=== PATIENT | male | born 1950 | race Caucasian/White ===

== ENCOUNTER → 2021-03-08 10:26 | Outpatient (CLI) | payer BC, MEDICARE, SELFPAY ==
--- NOTE | ~2021-03-08 | US_ITS ---
US abdomen complete DATE: 03/08/2021 10:52 INDICATION: Generalized abdominal pain TECHNIQUE: Real-time imaging of the abdomen, Doppler analysis COMPARISON: None FINDINGS: No hepatic or pancreatic space-occupying mass lesion is evident. Normal hepatopedal portal venous flow direction. No gallstones or gallbladder wall thickening. Common bile duct measures 3.7 mm , normal. Negative sonographic Jalloh's sign no renal mass lesion or hydronephrosis. Splenic size is within normal range. No renal mass lesion or hydronephrosis. IMPRESSION: No significant abnormality Reviewed, dictated and finalized at [facility] Reviewed, dictated and finalized at [facility]. IMPRESSION: No significant abnormality
== END ==
PROVIDERS: PCP Internal Medicine; Visit Provider Nurse Practitioner
DX: R10.9 Unspecified abdominal pain (principal)
CPT/HCPCS: 76700

== ENCOUNTER 2025-02-11 18:49 | Inpatient (IN) | payer MEDICARE, SELFPAY ==
[2025-02-11] VITALS (9 sets, daily range): BP systolic 93–156; BP diastolic 52–96; PULSE 75–88; RESP 16–20; TEMP 36.7–36.9; O2SAT 99–100; BMI 27.7
--- NOTE | 2025-02-11 19:10 | ED.GENADULT ---
HPI - General Adult General Chief complaint: GI Bleed Stated complaint: blood in stool Time Seen by Provider: 02/11/25 18:52 History of Present Illness HPI narrative: 74-year-old male present to the emergency department for evaluation for black tarry stools that started this morning. Patient has no prior history of GI bleed, patient is not on any blood thinners. Patient started taking increased doses of Excedrin and ibuprofen over the last 2 weeks for sciatica. Patient states that the stool started this morning and he has had multiple dark stools. Patient denies any associated abdominal pain. Patient did have some associated exertional fatigue when walking up stairs today. Related Data Home Medications ?Medication ?Instructions ?Recorded ?Confirmed ?Last Taken ?Type metformin 500 mg tablet 500 mg PO DAILY 02/11/25 02/11/25 02/10/25 History Allergies Allergy/AdvReac Type Severity Reaction Status Date / Time No Known Allergies Allergy Verified 07/06/19 07:47 Review of Systems Review of Systems: All systems reviewed & are unremarkable except as noted in HPI and below PMFSH Past Medical History Medical History (Updated 02/11/25 @ 22:25 by Ana Valdez PA-C) Chickenpox Measles Elevated blood pressure reading in office with diagnosis of hypertension Erectile dysfunction Abnormal fasting glucose Anemia Surgical History Surgical History (Updated 02/12/25 @ 01:05 by Ana Valdez PA-C) No history of previous surgery Family History Family History Father Acute myocardial infarction, Onset Age: 44 Mother Pneumonia Social History Social History (Updated 02/12/25 @ 01:06 by Ana Valdez PA-C) Social History: Surrogate medical decision maker: Ly Bailey spouse. Code status: Full code. Smoking status: Never smoker Alcohol intake: current Drinks per week: 1 Substance use: never Substance use type: does not use Do You Feel Safe in your Home?: Yes Lack of Transportation: No Lack of Food: Never True Current Housing: I Have Housing Concerned About Future Housing: No Difficulty Paying Gas/Electric Bills: No Difficulty Paying for Meds: No Currently Unemployed: No Education: Bachelor's Degree Difficulty w/ Childcare or Family Care: No Spiritual care concerns: No Exam Narrative: APPEARANCE: Well appearing, no pain, no distress, well-nourished. HEAD: normocephalic, atraumatic. EYES: PERRLA/EOMI, conjunctivae clear. NOSE: Normal no drainage EARS:TMS clear with good light reflex. THROAT: Pharynx clear, no exudate. NECK: Supple. No adenopathy, no masses. RESPIRATORY: Airway patent, respirations nonlabored. Clear to auscultation bilaterally, no rales, rhonchi, wheezing. CARDIOVASCULAR: Regular rate and rhythm without murmurs rubs or gallops. ABDOMINAL: Soft, nontender, nondistended, normal bowel sounds MUSCULOSKELETAL: Moves all extremities. Strength/ROM intact, No edema, No calf tenderness. NEURO: Alert. Cranial nerves II through XII intact. Good gait. Good coordination SKIN: Warm, dry. Normal Color Course Vital Signs Vital signs: Vital Signs Temperature 98.5 F 02/11/25 19:33 Pulse Rate 88 02/11/25 19:33 Respiratory Rate 16 02/11/25 19:33 Pulse Oximetry 100 02/11/25 19:33 Oxygen Delivery Room Air 02/11/25 19:33 Temperature 98.0 F 02/11/25 22:00 Pulse Rate 81 02/12/25 04:00 Respiratory Rate 20 02/11/25 22:00 Blood Pressure 93/59 L 02/11/25 23:21 Pulse Oximetry 99 02/11/25 22:00 Oxygen Delivery Room Air 02/11/25 19:33 Medical Decision Making [facility] Narrative Medical decision making narrative: 74-year-old male present to the emergency department for evaluation for black tarry stool that started early this morning. Patient was Hemoccult positive on exam. Patient is currently afebrile with a leukocytosis of 10.5 and hemoglobin of 11.2. This hemoglobin is decreased from his previous that have been collected in 2020. INR is 1.3. Patient's BUN is 36 with a creatinine of 0.83. Calcium 7.9. Patient's albumin is 2.9. Case was discussed with GI they are consulted and they are anticipating endoscopy tomorrow. Case was discussed with hospitalist patient was accepted for admission. Patient family were updated on results of the workup plan for admission. Differential Diagnosis Differential Diagnosis: Upper GI bleed, diarrhea, melena, hematochezia Vital Signs Vital Signs: Vital Signs Temperature 98.5 F 02/11/25 19:33 Pulse Rate 88 02/11/25 19:33 Respiratory Rate 16 02/11/25 19:33 Pulse Oximetry 100 02/11/25 19:33 Oxygen Delivery Room Air 02/11/25 19:33 Temperature 98.0 F 02/11/25 22:00 Pulse Rate 81 02/12/25 04:00 Respiratory Rate 20 02/11/25 22:00 Blood Pressure 93/59 L 02/11/25 23:21 Pulse Oximetry 99 02/11/25 22:00 Oxygen Delivery Room Air 02/11/25 19:33 Lab Data Lab results reviewed: Yes I reviewed the patient's lab results. 02/11/25 23:15 02/11/25 19:30 Labs: Lab Results 02/11/25 Range/Units 19:30 WBC 10.8 H (4.5-10.0) K/mm3 RBC 3.63 L (4.6-6.20) M/mm3 Hgb 11.2 L (14.0-18.0) g/dL Hct 34.4 L (42.0-52.0) % MCV 94.8 (80-100) fl MCH 30.9 (26-34) pg MCHC 32.6 (32-36) g/dl RDW 13.5 (11.5-14.5) % Plt Count 208 (150-375) k/mm3 MPV 9.0 (7.4-10.4) fl Immature Gran % (Auto) 0.5 (0-0.5) % Neut % (Auto) 81.3 H (45.5-73.1) % Lymph % (Auto) 11.8 L (18.3-44.2) % [place] % (Auto) 4.3 (2.6-8.5) % Eos % (Auto) 1.5 (0-4.4) % Baso % (Auto) 0.6 (0.2-1.2) % Lymph # (Auto) 1.27 (0.9-3.2) K/mm3 [place] # (Auto) 0.5 (0.1-0.6) K/mm3 Eos # (Auto) 0.2 (0-0.3) K/mm3 Baso # (Auto) 0.1 (0.0-0.1) K/mm3 Abs Immat Gran (auto) 0.05 H (0.00-0.031) K/mm3 Absolute Neuts (auto) 8.8 H (1.3-6.7) K/mm3 Absolute Nucleated RBC 0.000 (0.0-0.012) K/mm3 Nucleated RBC % 0.0 (0.0-0.2) % PT 16.1 H (11.1-14.7) Seconds INR 1.3 APTT 20.5 L (22.3-36.8) Seconds Sodium 138 (137-145) mmol/L Potassium 4.2 (3.4-5.0) mmol/L Chloride 112 H (98-107) mmol/L Carbon Dioxide 17 L (22-30) mmol/L Anion Gap 9 (4-12) mmol/L BUN 36 H (9-20) mg/dL Creatinine 0.83 (0.7-1.3) mg/dL Estim Creat Clear Calc 77 ml/min Estimated GFR > 60 (59 - ) Glucose 180 H (65-110) mg/dL Lactic Acid 1.8 (0.7-2.0) mmol/L Calcium 7.9 L (8.4-10.2) mg/dL Total Bilirubin 0.3 (0.2-1.3) mg/dL AST 21 (17-59) U/L ALT 18 (6-50) U/L Alkaline Phosphatase 27 L (38-126) U/L Total Protein 5.4 L (6.3-8.2) g/dL Albumin 2.9 L (3.5-5.1) g/dL Blood Type A Positive Antibody Screen Negative Discharge Plan Discharge Clinical Impression: Melena, Acute upper gastrointestinal bleeding Patient Disposition: Still a Patient Condition: Serious
[2025-02-11 19:38] LABS: Basophils Absolute Auto 0.1 K/mm3 (0.0-0.1); Basophils Percent Auto 0.6 % (0.2-1.2); Eosinophils Absolute Auto 0.2 K/mm3 (0-0.3); Eosinophils Percent Auto 1.5 % (0-4.4); Hematocrit 34.4 % (42.0-52.0); Hemoglobin 11.2 g/dL (14.0-18.0); Immature Granulocyte Absolute 0.05 K/mm3 (0.00-0.031); Immature Granulocyte Percent A 0.5 % (0-0.5); Lymphocytes Absolute Auto 1.27 K/mm3 (0.9-3.2); Lymphocytes Percent Auto 11.8 % (18.3-44.2); Mean Corpuscular HGB Conc 32.6 g/dl (32-36); Mean Corpuscular Hemoglobin 30.9 pg (26-34); Mean Corpuscular Volume 94.8 fl (80-100); Monocytes Absolute Auto 0.5 K/mm3 (0.1-0.6); Monocytes Percent Auto 4.3 % (2.6-8.5); Neutrophils Absolute Auto 8.8 K/mm3 (1.3-6.7); Neutrophils Percent Auto 81.3 % (45.5-73.1); Platelet Count Result 208 k/mm3 (150-375); Red Blood Count 3.63 M/mm3 (4.6-6.20); Red Cell Distribution Width 13.5 % (11.5-14.5); White Blood Count 10.8 K/mm3 (4.5-10.0)
[2025-02-11 19:50] LABS: Lactic Acid Reflex 1.8 mmol/L (0.7-2.0)
[2025-02-11 19:51] LABS: Alanine Aminotransferase 18 U/L (6-50); Albumin Level 2.9 g/dL (3.5-5.1); Alkaline Phosphatase 27 U/L (38-126); Anion Gap 9 mmol/L (4-12); Aspartate Amino Transferase 21 U/L (17-59); Bilirubin,Total 0.3 mg/dL (0.2-1.3); Blood Urea Nitrogen 36 mg/dL (9-20); Calcium 7.9 mg/dL (8.4-10.2); Carbon Dioxide 17 mmol/L (22-30); Chloride 112 mmol/L (98-107); Estimated CRCL calculation 77 ml/min; Estimated Glomerular Filt Rate > 60; Glucose 180 mg/dL (65-110); INR 1.3; Partial Thromboplastin Time 20.5 Seconds (22.3-36.8); Potassium 4.2 mmol/L (3.4-5.0); Prothrombin Time 16.1 Seconds (11.1-14.7); Sodium 138 mmol/L (137-145); Total Protein 5.4 g/dL (6.3-8.2)
[2025-02-11] MEDS: FAMOTIDINE 20 MG/2 ML VIAL IV PUSH (20:32)
[2025-02-11] MEDS: PANTOPRAZOLE SODIUM IV 40 MG VIAL IV PUSH (20:32)
[2025-02-11] MEDS: LACTATED RINGERS 1,000 ML 999 ML IV CONT (20:32)
--- NOTE | 2025-02-11 21:15 | P.HP_ITS ---
H&P: HPI History of Present Illness Date/Time: 02/11/25 22:30 Chief Complaint: Blood in stools. Narrative: This is a pleasant 74-year-old male without any significant reported medical history who presented to the emergency department via EMS from home for evaluation of blood in stools. He has been having issues with left-sided sciatica the last several weeks for which he has been taking ibuprofen and Excedrin daily. Last evening before bed his stomach felt a bit on easy but he was able to sleep throughout the night. Not long after waking up this morning he began to feel poorly with symptoms to include cold sweats and bloating. Not long after he had 2 dark, tarry stools which were formed. Sometime later he developed loose stools which were still dark and tarry but admixed with small amounts of bright red blood. He denies syncope, near syncope, chest pain, shortness of breath, abdominal pain, nausea, and vomiting. He typically takes Excedrin before bedtime but the ibuprofen is new given his sciatica. No significant alcohol use. No history of GERD, gastritis, or peptic ulcers. In the ED: His vital signs were stable on arrival. Labs were significant for WBC count of 10.8, hemoglobin 11.2, PT 16.1, INR 1.3, PTT 20.5, chloride 112, carbon dioxide 17, anion gap 9, BUN 36, glucose 180, total protein 5.4, albumin 2.9. He received famotidine 20 mg and pantoprazole 40 mg as well as a 1 L lactated Ri nger's bolus. He is being admitted in this setting for close monitoring and GI consultation. Review of Systems Review of Systems: 12 systems were reviewed and are negativ e except for as per HPI. [facility] Past Medical History Medical History (Updated 02/11/25 @ 22:25 by Ana Valdez PA-C) Chickenpox Measles Elevated blood pressure reading in office with diagnosis of hypertension Erectile dysfunction Abnormal fasting glucose Anemia Surgical History Surgical History (Updated 02/12/25 @ 01:05 by Ana Valdez PA-C) No history of previous surgery Family History Family History Father Acute myocardial infarction, Onset Age: 44 Mother Pneumonia Social History Social History (Updated 02/12/25 @ 01:06 by FRANCESCA Abraham Social History: Surrogate medical decision maker: Ly Bailey spouse. Code status: Full code. Smoking status: Never smoker Alcohol intake: current Drinks per week: 1 Substance use: never Substance use type: does not use Do You Feel Safe in your Home?: Yes Lack of Transportation: No Lack of Food: Never True Current Housing: I Have Housing Concerned About Future Housing: No Difficulty Paying Gas/Electric Bills: No Difficulty Paying for Meds: No Currently Unemployed: No Education: Bachelor's Degree Difficulty w/ Childcare or Family Care: No Spiritual care concerns: No Meds Home Medications and Allergies Home Medications ?Medication ?Instructions ?Recorded ?Confirmed ?Type sildenafil (pulm.hypertension) 20 20 mg PO .COMPLEX PRN sexual 06/16/20 02/11/25 Rx mg tablet activity #30 tabs metformin 500 mg tablet 500 mg PO DAILY 02/11/25 02/11/25 History Allergies Allergy/AdvReac Type Severity Reaction Status Date / Time No Known Allergies Allergy Verified 07/06/19 07:47 Vital Signs Vital Signs - 24 hr 02/11/25 19:33 Temperature 98.5 F Pulse Rate 88 Respiratory Rate 16 Pulse Oximetry 100 Oxygen Delivery Room Air Exam Narrative: General: Non-toxic appearing male in no distress. Weight: 100.7 kg. BMI: 27.7. HEENT: PERRL, EOMI. Sclera anicteric. Oral mucosa moist. Neck: Supple. Respiratory: Lungs are clear to auscultation bilaterally. Cardiovascular: Regular rate and rhythm with S1-S2. Gastrointestinal: Abdomen is soft, nontender, and nondistended with positive bowel sounds. Rectal: Stool heme positive per ED physician. Skin: Warm and dry. No rash or lesions on limited exam. Extremities: No cyanosis, clubbing, or edema. Radial and pedal pulses intact. Neurological: Alert. Cranial nerves 2-12 are grossly intact. No gross focal deficits to casual conversation. Psychiatric: Pleasant and cooperative with normal mood and affect. Judgment and insight intact. H&P: Results Labs Labs: Short CBC 02/11/25 Range/Units 19:30 WBC 10.8 H (4.5-10.0) K/mm3 Hgb 11.2 L (14.0-18.0) g/dL Hct 34.4 L (42.0-52.0) % Plt Count 208 (150-375) k/mm3 BMP 02/11/25 19:30 Sodium 138 Potassium 4.2 Chloride 112 H Carbon Dioxide 17 L BUN 36 H Creatinine 0.83 Glucose 180 H Calcium 7.9 L Liver Function 02/11/25 Range/Units 19:30 Total Bilirubin 0.3 (0.2-1.3) mg/dL AST 21 (17-59) U/L ALT 18 (6-50) U/L Alkaline Phosphatase 27 L (38-126) U/L Albumin 2.9 L (3.5-5.1) g/dL Assessment and Plan Assessment and plan (1) GI bleed: Code(s): K92.2 - Gastrointestinal hemorrhage, unspecified Status: Acute (2) Hyperglycemia: Code(s): R73.9 - Hyperglycemia, unspecified Status: Acute Plan The patient presented to the emergency for evaluation of dark stools since this morning as per HPI. Labs, imaging, EKG, and all reports were personally reviewed. Stool was Hemoccult positive per ED physician. Concerns are for upper GI bleed given reports of melena. He has been taking ibuprofen and Excedrin daily and may have gastritis or ulcer. He will be NPO after midnight for upper endoscopy tomorrow. Continue pantoprazole 40 mg IV b.i.d.. Blood pressures were stable on arrival but have been a bit softer this evening. Initial hemoglobin was 11.2 and we will continue to trend Q 6 hours and transfuse if indicated. The patient is on metformin and I suspect he may have prediabetes although he denies this. Random glucose today was 180; glucose and hemoglobin A1c. We did discuss avoiding NSAIDs and Excedrin and trying acetaminophen for pain. His home medications will be reviewed and resumed as appropriate. Findings and treatment plan were discussed with the patient and his . Questions were solicited and answered to satisfaction. The patient's medical management will be taken over by the hospitalist team in a.m. Quality VTE Prophylaxis VTE prophylaxis: mechanical ordered If No VTE Prophylaxis Answer both mechanical and pharmacologic: Reason no pharmacologic proph: medical contraindication (GI bleed) The patient has been admitted under observation status. Hospitalist MIPS Advance Care Plan I have confirmed that the patient's Advanced Care Plan is present, code status is documented, or surrogate decision maker is listed in patient medical record.: Yes Medication Reconciliation I have utilized all available resources to obtain, update and review the patients current medications (includes all prescriptions, OTC, herbals, cannabis, and nutritional supplements).: Yes
[2025-02-11] MEDS: LACTATED RINGERS 1,000 ML 125 ML IV CONT (21:45)
--- NOTE | 2025-02-11 22:19 | ADMGEN ---
This patient, Jesus Waters, was admitted to 2 Medical Room 260-01. Patient/family oriented to hospital policies and general routines including ID bracelet, bed and alarms, visiting hours, pain management, procedures, bathroom and other care routines, personal items, smoking policy, room service/diet, and visiting hours. Information on how to activate the Rapid Response Team has been discussed. Patient/Family are encouraged to report perceived risks to care and to ask questions if they do not understand what they are told or what they should do.
[2025-02-11 23:22] LABS: Hematocrit 34.6 % (42.0-52.0)
[2025-02-12] VITALS (15 sets, daily range): BP systolic 108–178; BP diastolic 53–98; PULSE 79–119; RESP 18–24; TEMP 36.5–37.1; O2SAT 94–100
[2025-02-12 05:54] LABS: Hematocrit 31.2 % (42.0-52.0); Mean Corpuscular HGB Conc 32.1 g/dl (32-36); Mean Corpuscular Hemoglobin 30.4 pg (26-34); Mean Corpuscular Volume 94.8 fl (80-100); Mean Platelet Volume 8.9 fl (7.4-10.4); Platelet Count Result 182 k/mm3 (150-375); Red Blood Count 3.29 M/mm3 (4.6-6.20); Red Cell Distribution Width 13.6 % (11.5-14.5); White Blood Count 7.5 K/mm3 (4.5-10.0)
[2025-02-12] MEDS: LACTATED RINGERS 1,000 ML 125 ML IV CONT (05:57)
[2025-02-12 06:07] LABS: Anion Gap 7 mmol/L (4-12); Blood Urea Nitrogen 34 mg/dL (9-20); Calcium 8.5 mg/dL (8.4-10.2); Carbon Dioxide 21 mmol/L (22-30); Chloride 108 mmol/L (98-107); Estimated CRCL calculation 81 ml/min; Estimated Glomerular Filt Rate > 60; Glucose 135 mg/dL (65-110); Magnesium 1.8 mg/dL (1.6-2.3); Partial Thromboplastin Time 22.3 Seconds (22.3-36.8); Potassium 4.4 mmol/L (3.4-5.0); Sodium 136 mmol/L (137-145)
[2025-02-12 07:10] LABS: INR 1.3; Prothrombin Time 16.2 Seconds (11.1-14.7)
--- NOTE | 2025-02-12 07:12 | PC.NURSE ---
TO GI LAB PER WHEELCHAIR
[2025-02-12] MEDS: LACTATED RINGERS 1,000 ML 150 ML IV CONT (07:15)
--- NOTE | 2025-02-12 07:20 | WPDANESEPPF ---
Anes - Initial Pre Proc Eval Procedure: Operation Date: 02/12/25 07:30 Proposed Procedures p Esophagogastroduodenoscopy - Jerome Burgos MD Date/Time: 02/12/25 07:20 Surgeon: Fozia Longo MD Pre Op Diagnosis: Upper GI bleed, melena Patient Data Age: 74 Gender: M Height: 1.91 m Weight: 101.2 kg Last Vital Signs Temp 97.7 F 02/12/25 07:00 Pulse 82 02/12/25 07:00 Resp 23 H 02/12/25 07:00 BP 144/72 H 02/12/25 07:00 Pulse Ox 99 02/12/25 07:00 O2 Del Method Room Air 02/12/25 07:00 Allergies Allergy/AdvReac Type Severity Reaction Status Date / Time No Known Allergies Allergy Verified 02/12/25 06:58 Home Medications ?Medication ?Instructions ?Recorded ?Confirmed ?Type sildenafil (pulm.hypertension) 20 20 mg PO .COMPLEX PRN sexual 06/16/20 02/11/25 Rx mg tablet activity #30 tabs metformin 500 mg tablet 500 mg PO DAILY 02/11/25 02/11/25 History Laboratory Tests 02/11/25 02/11/25 02/12/25 19:30 23:15 05:36 WBC 10.8 H K/mm3 7.5 K/mm3 (4.5-10.0) (4.5-10.0) RBC 3.63 L M/mm3 3.29 L M/mm3 (4.6-6.20) (4.6-6.20) Hgb 11.2 L g/dL 11.0 L g/dL 10.0 L g/dL (14.0-18.0) (14.0-18.0) (14.0-18.0) Hct 34.4 L % 34.6 L % 31.2 L % (42.0-52.0) (42.0-52.0) (42.0-52.0) MCV 94.8 fl 94.8 fl (80-100) (80-100) MCH 30.9 pg 30.4 pg (26-34) (26-34) MCHC 32.6 g/dl 32.1 g/dl (32-36) (32-36) RDW 13.5 % 13.6 % (11.5-14.5) (11.5-14.5) Plt Count 208 k/mm3 182 k/mm3 (150-375) (150-375) MPV 9.0 fl 8.9 fl (7.4-10.4) (7.4-10.4) Immature Gran % (Auto) 0.5 % (0-0.5) Neut % (Auto) 81.3 H % (45.5-73.1) Lymph % (Auto) 11.8 L % (18.3-44.2) [place] % (Auto) 4.3 % (2.6-8.5) Eos % (Auto) 1.5 % (0-4.4) Baso % (Auto) 0.6 % (0.2-1.2) Lymph # (Auto) 1.27 K/mm3 (0.9-3.2) [place] # (Auto) 0.5 K/mm3 (0.1-0.6) Eos # (Auto) 0.2 K/mm3 (0-0.3) Baso # (Auto) 0.1 K/mm3 (0.0-0.1) Abs Immat Gran (auto) 0.05 H K/mm3 (0.00-0.031) Absolute Neuts (auto) 8.8 H K/mm3 (1.3-6.7) Absolute Nucleated RBC 0.000 K/mm3 (0.0-0.012) Nucleated RBC % 0.0 % (0.0-0.2) PT 16.1 H Seconds Pending (11.1-14.7) INR 1.3 Pending APTT 20.5 L Seconds Pending (22.3-36.8) Sodium 138 mmol/L 136 L mmol/L (137-145) (137-145) Potassium 4.2 mmol/L 4.4 mmol/L (3.4-5.0) (3.4-5.0) Chloride 112 H mmol/L 108 H mmol/L (98-107) (98-107) Carbon Dioxide 17 L mmol/L 21 L mmol/L (22-30) (22-30) Anion Gap 9 mmol/L 7 mmol/L (4-12) (4-12) BUN 36 H mg/dL 34 H mg/dL (9-20) (9-20) Creatinine 0.83 mg/dL 0.81 mg/dL (0.7-1.3) (0.7-1.3) Estim Creat Clear Calc 77 ml/min 81 ml/min Estimated GFR > 60 > 60 (59 - ) (59 - ) Glucose 180 H mg/dL 135 H mg/dL (65-110) (65-110) Lactic Acid 1.8 mmol/L (0.7-2.0) Calcium 7.9 L mg/dL 8.5 mg/dL (8.4-10.2) (8.4-10.2) Magnesium 1.8 mg/dL (1.6-2.3) Total Bilirubin 0.3 mg/dL (0.2-1.3) AST 21 U/L (17-59) ALT 18 U/L (6-50) Alkaline Phosphatase 27 L U/L (38-126) Total Protein 5.4 L g/dL (6.3-8.2) Albumin 2.9 L g/dL (3.5-5.1) Blood Type A Positive Antibody Screen Negative Patient hx anesthesia problems: none Family hx anesthesia problems: none Results Review: All pre-operative results and documents have been reviewed as part of the pre-operative evaluation. [facility], [facility] Past Medical History Medical History Chickenpox Measles Elevated blood pressure reading in office with diagnosis of hypertension Erectile dysfunction Abnormal fasting glucose Anemia Surgical History Surgical History No history of previous surgery Family History Family History Father Acute myocardial infarction, Onset Age: 44 Mother Pneumonia Social History Social History Social History: Surrogate medical decision maker: Ly Bailey spouse. Code status: Full code. Smoking status: Never smoker Alcohol intake: current Drinks per week: 1 Substance use: never Substance use type: does not use Do You Feel Safe in your Home?: Yes Lack of Transportation: No Lack of Food: Never True Current Housing: I Have Housing Concerned About Future Housing: No Difficulty Paying Gas/Electric Bills: No Difficulty Paying for Meds: No Currently Unemployed: No Education: Bachelor's Degree Difficulty w/ Childcare or Family Care: No Spiritual care concerns: No Anes - Eval Final PreProcedure Day of Procedure 02/12/25 07:20 Patient weight: normal Heart: regular rate and rhythm Lungs: clear to auscultation Airway: Mallampati scale class II Neurological: alert and oriented Last oral intake: >/= 8 hours ASA classification: II Emergent: yes Anesthetic plan: proceed Anesthesia type and monitoring: general GIVS Results Review: All pre-operative results and documents have been reviewed as part of the pre-operative evaluation. Informed Consent: The patient's anesthetic plan and its attendant risks and benefits were discussed with the patient/family/POA. Questions were solicited and answers provided to the satisfaction of the patient/family/POA.
--- NOTE | 2025-02-12 07:21 | P.CONGI_ITS ---
Assessment and Plan Assessment and plan (1) Melena: Code(s): K92.1 - Melena Status: Acute Assessment and Plan: The patient is deemed a good candidate for EGD and possible hemostatic treatment. Consent signed. Will proceed. (2) GI bleed: Code(s): K92.2 - Gastrointestinal hemorrhage, unspecified Status: Acute GI Consult Note Consult date/time: 02/12/25 07:21 Reason for consult: Melena HPI: Jesus Waters is a 74 year old male who was in his usual state of health until approximately 36 hours ago when he started experiencing lightheadedness and weakness. Shortly after, he had approximately 3 bowel movements, described as completely black with evidence of blood. He called the EMT and was transferred to the emergency department. He was found to be somewhat hypotensive and received fluid resuscitation. Of note, the patient has been taking ibuprofen for about 2 weeks for sciatica besides his normal dose of Excedrin which he takes every night. Review of Systems 2 Review of Systems: All systems reviewed & are unremarkable except as noted in HPI and below PMFSH Past Medical History Medical History Chickenpox Measles Elevated blood pressure reading in office with diagnosis of hypertension Erectile dysfunction Abnormal fasting glucose Anemia Surgical History Surgical History No history of previous surgery Family History Family History Father Acute myocardial infarction, Onset Age: 44 Mother Pneumonia Social History Social History Social History: Surrogate medical decision maker: Ly Bailey spouse. Code status: Full code. Smoking status: Never smoker Alcohol intake: current Drinks per week: 1 Substance use: never Substance use type: does not use Do You Feel Safe in your Home?: Yes Lack of Transportation: No Lack of Food: Never True Current Housing: I Have Housing Concerned About Future Housing: No Difficulty Paying Gas/Electric Bills: No Difficulty Paying for Meds: No Currently Unemployed: No Education: Bachelor's Degree Difficulty w/ Childcare or Family Care: No Spiritual care concerns: No Meds Home Medications and Allergies Home Medications ?Medication ?Instructions ?Recorded ?Confirmed ?Type sildenafil (pulm.hypertension) 20 20 mg PO .COMPLEX PRN sexual 06/16/20 02/11/25 Rx mg tablet activity #30 tabs metformin 500 mg tablet 500 mg PO DAILY 02/11/25 02/11/25 History Allergies Allergy/AdvReac Type Severity Reaction Status Date / Time No Known Allergies Allergy Verified 02/12/25 06:58 Vital Signs Vital Signs - 24 hr 02/11/25 19:33 02/11/25 20:30 02/11/25 20:45 Temperature 98.5 F Pulse Rate 88 Respiratory Rate 16 16 16 Blood Pressure 147/96 H 123/85 Pulse Oximetry 100 100 100 Oxygen Delivery Room Air 02/11/25 21:00 02/11/25 21:40 02/11/25 22:00 Temperature 98.0 F Pulse Rate 75 Respiratory Rate 16 16 20 Blood Pressure 146/86 H 156/95 H 128/62 Pulse Oximetry 100 100 99 Oxygen Delivery 02/11/25 22:27 02/11/25 23:20 02/11/25 23:21 Temperature Pulse Rate 83 Respiratory Rate Blood Pressure 123/68 98/52 L Pulse Oximetry Oxygen Delivery 02/11/25 23:21 02/12/25 00:00 02/12/25 04:00 Temperature Pulse Rate 81 81 Respiratory Rate Blood Pressure 93/59 L Pulse Oximetry Oxygen Delivery 02/12/25 06:00 02/12/25 07:00 Temperature 98.0 F 97.7 F Pulse Rate 79 82 Respiratory Rate 20 23 H Blood Pressure 139/71 144/72 H Pulse Oximetry 99 99 Oxygen Delivery Room Air Exam 2 Const: General: cooperative and healthy appearing Resp: Effort & Inspection: normal respiratory effort and able to speak in complete sentences Auscultation: clear to auscultation bilaterally Cardio: Rate: regular rate Rhythm: regular rhythm GI: Inspection: normal to inspection GI Palp: No No hepatosplenomegaly present Auscultation: normal bowel sounds Rectal Exam: deferred Skin: General skin exam: normal color Psych: Appearance: grossly normal Mental Status: mental status grossly normal Results Labs 02/12/25 05:36 02/12/25 05:36 Labs: Short CBC 02/11/25 02/11/25 02/12/25 Range/Units 19:30 23:15 05:36 WBC 10.8 H 7.5 (4.5-10.0) K/mm3 Hgb 11.2 L 11.0 L 10.0 L (14.0-18.0) g/dL Hct 34.4 L 34.6 L 31.2 L (42.0-52.0) % Plt Count 208 182 (150-375) k/mm3 BMP 02/11/25 02/12/25 19:30 05:36 Sodium 138 136 L Potassium 4.2 4.4 Chloride 112 H 108 H Carbon Dioxide 17 L 21 L BUN 36 H 34 H Creatinine 0.83 0.81 Glucose 180 H 135 H Calcium 7.9 L 8.5 Liver Function 02/11/25 Range/Units 19:30 Total Bilirubin 0.3 (0.2-1.3) mg/dL AST 21 (17-59) U/L ALT 18 (6-50) U/L Alkaline Phosphatase 27 L (38-126) U/L Albumin 2.9 L (3.5-5.1) g/dL
[2025-02-12] MEDS: SIMETHICONE ORAL SUSPENSION 20 MG/0.3 ML 30 ML BOTTLE 1.8 ML PO (07:30)
--- NOTE | 2025-02-12 08:01 | S_PTH ---
PATIENT: Jesus Waters LOC: [facility]U #:[id number] AGE/SX: 74/M ROOM: 202 RE02/12/[address]: Bhakti Mcleod PA-C : 1950 BED: 01 DIS: 02/14/2025 SPEC #: [id number] RECD: 02/14/25 06:53 STATUS: BG REJonn #: [id number] RAMA: 02/12/25 08:[address]: Jerome Burgos DEPT: [facility] Surgical RECD BY: Lynnette Gibson ENTERED: 02/14/25 06:54 SP TYPE: Surgical OTHR DR: Meño Lyman, M.Kenzie. MD Bhakti Hartmann PA-C Tissues: A - Gastric Biopsy B - Gastric Biopsy Procedures: Hematoxylin and Eosin Stain Gross and Microscopic Level 4
[2025-02-12] MEDS: EPINEPHrine INJ 1 MG/10 ML SYRINGE 1.6 MG XX (08:04)
--- NOTE | 2025-02-12 08:11 | P.PNIM_ITS ---
Progress Note: A&P Assessment and Plan (1) GI bleed: Code(s): K92.2 - Gastrointestinal hemorrhage, unspecified Status: Acute Assessment and Plan: Daily ibuprofen and Excedrin use for ongoing sciatica pain, likely cause of GI bleed. No alcohol history. Discussed avoiding NSAIDs and Excedrin and trying acetaminophen for pain H/H remains stable, continue to monitor. H/H q 6H. Pantoprazole BID Diet: NPO DVT Px: SCDs. Avoid anti-coagulations Monitor serum electrolytes, CBC, hemoglobin/hematocrit q.8 hours. If hemoglobin drops below 7 transfuse packed red blood cells Monitor for bloody bowel movements,chest pain,SOB or dizziness/lightheadedness GI consulted EGD showed a few superficial, cratered benign ulcers in the antrum. Single superficial acute benign ulcer that is actively spurting bleeding. Epinephrine injection done for vasoconstriction. Actively bleeding ulcer noted in patient's EGD. He was given an injection of epi for basal constriction at that time. Patient was then transferred to the IMU for closer monitoring. H&H to be monitored q.6 hours. Remains stable at this time. (2) Hyperglycemia: Code(s): R73.9 - Hyperglycemia, unspecified Status: Acute Assessment and Plan: Glucose 135 on [facility] hypoglycemia protocol POC blood glucose ACHS home medication - metformin 500 mg daily started on SSI Hemoglobin A1c 6.6 Time Spent With Patient Time with patient: 25 - 35 minutes Subjective Date/time seen: 02/12/25 08:11 Interval history: 4-year-old male without any significant reported medical history who presented to the hospital via EMS from home for evaluation of blood in stools. Patient is pleasant lying comfortably in bed with family at bedside. He is endorsing some muscle aches. He has not had a bowel movement since the endoscopy. No other complaints denying chest pain, shortness a breath, palpitations, nausea/vomiting, and abdominal pain. Review of Systems Review of Systems: All systems reviewed & are unremarkable except as noted in HPI and below Exam Narrative: AF HR 94 RR 24 Spo2 97 BP 144/73 General: male in no acute respiratory distress who is nontoxic appearing, lying semi recumbent in bed. HEENT: Normocephalic. Atraumatic. Extraocular movement intact. No facial asymmetry. Chest: Lungs are clear to auscultation bilaterally. No wheezes or crackles. CV: Heart was regular rate and rhythm. S1/S2. No murmurs, gallops, or rubs. Abd: Abdomen was soft. Nontender. Nondistended. Positive bowel sounds. Ext: No clubbing, cyanosis, or edema. 2+ DP pulses bilaterally. Neuro: Patient is alert and oriented x4. Speech is clear. Objective Data Vital Signs Vital Signs: Vital Signs - 24 hr 02/11/25 19:33 02/11/25 20:30 02/11/25 20:45 Temperature 98.5 F Pulse Rate 88 Respiratory Rate 16 16 16 Blood Pressure 147/96 H 123/85 Pulse Oximetry 100 100 100 Oxygen Delivery Room Air 02/11/25 21:00 02/11/25 21:40 02/11/25 22:00 Temperature 98.0 F Pulse Rate 75 Respiratory Rate 16 16 20 Blood Pressure 146/86 H 156/95 H 128/62 Pulse Oximetry 100 100 99 Oxygen Delivery 02/11/25 22:27 02/11/25 23:20 02/11/25 23:21 Temperature Pulse Rate 83 Respiratory Rate Blood Pressure 123/68 98/52 L Pulse Oximetry Oxygen Delivery 02/11/25 23:21 02/12/25 00:00 02/12/25 04:00 Temperature Pulse Rate 81 81 Respiratory Rate Blood Pressure 93/59 L Pulse Oximetry Oxygen Delivery 02/12/25 06:00 02/12/25 07:00 Temperature 98.0 F 97.7 F Pulse Rate 79 82 Respiratory Rate 20 23 H Blood Pressure 139/71 144/72 H Pulse Oximetry 99 99 Oxygen Delivery Room Air Intake/Output Intake/Output: Intake & Output 02/09/25 02/10/25 02/11/25 02/12/25 23:59 23:59 23:59 23:59 Intake Total 1000 1000 Output Total 700 Balance 1000 300 Meds/Results Medications: Active Medications Generic Name Dose Route Start Last Admin Trade Name Freq PRN Reason Stop Dose Admin Epinephrine HCl 1.6 mg 02/12/25 08:04 02/12/25 08:04 Epinephrine Inj 1 Mg/10 Ml Syringe XX 02/12/25 08:05 1.6 mg ONCE ONE Administration Lactated Ringer's 1,000 mls @ 150 mls/hr 02/12/25 06:40 02/12/25 08:06 Lr - Lactated Ringers Iv IV CONT 150 mls/hr .Q6H40M ZOILA Infusion Pantoprazole Sodium 40 mg 02/12/25 09:00 Pantoprazole Sodium Iv 40 Mg Vial IV PUSH Q12HR ZOILA Simethicone 1.8 ml 02/12/25 06:50 02/12/25 07:30 Simethicone Oral Suspension 20 Mg/0.3 Ml 30 Ml Bottle PO 1.8 ml ONCE PRN Administration Gas Discomfort Labs Labs: Laboratory Results - last 24 hr 02/11/25 02/11/25 02/12/25 19:30 23:15 05:36 WBC 10.8 H 7.5 RBC 3.63 L 3.29 L Hgb 11.2 L 11.0 L 10.0 L Hct 34.4 L 34.6 L 31.2 L MCV 94.8 94.8 MCH 30.9 30.4 MCHC 32.6 32.1 RDW 13.5 13.6 Plt Count 208 182 MPV 9.0 8.9 Immature Gran % (Auto) 0.5 Neut % (Auto) 81.3 H Lymph % (Auto) 11.8 L Schuyler % (Auto) 4.3 Eos % (Auto) 1.5 Baso % (Auto) 0.6 Lymph # (Auto) 1.27 Schuyler # (Auto) 0.5 Eos # (Auto) 0.2 Baso # (Auto) 0.1 Abs Immat Gran (auto) 0.05 H Absolute Neuts (auto) 8.8 H Absolute Nucleated RBC 0.000 Nucleated RBC % 0.0 PT 16.1 H 16.2 H INR 1.3 1.3 APTT 20.5 L 22.3 Sodium 138 136 L Potassium 4.2 4.4 Chloride 112 H 108 H Carbon Dioxide 17 L 21 L Anion Gap 9 7 BUN 36 H 34 H Creatinine 0.83 0.81 Estim Creat Clear Calc 77 81 Estimated GFR > 60 > 60 Glucose 180 H 135 H Lactic Acid 1.8 Calcium 7.9 L 8.5 Magnesium 1.8 Total Bilirubin 0.3 AST 21 ALT 18 Alkaline Phosphatase 27 L Total Protein 5.4 L Albumin 2.9 L Blood Type A Positive Antibody Screen Negative Quality VTE Prophylaxis VTE prophylaxis: mechanical ordered
--- NOTE | 2025-02-12 08:14 | WPDGIPROGNO ---
Progress Note: A&P Assessment and Plan (1) Duodenal ulcer hemorrhage: Code(s): K26.4 - Chronic or unspecified duodenal ulcer with hemorrhage Status: Acute Assessment and Plan: See endoscopy report. Patient had an actively bleeding duodenal ulcer, which was successfully injected with epinephrine and subsequently cauterized. Plan - Keep patient in a monitored bed, at least IMU - Continue Pantoprazole 40 mg IV every 12 hours - Keep pt NPO until further notice - Check H/H every 8 hours Subjective Date/time seen: 02/12/25 08:14 Objective Data Vital Signs Vital Signs: Vital Signs - 24 hr 02/11/25 19:33 02/11/25 20:30 02/11/25 20:45 Temperature 98.5 F Pulse Rate 88 Respiratory Rate 16 16 16 Blood Pressure 147/96 H 123/85 Pulse Oximetry 100 100 100 Oxygen Delivery Room Air 02/11/25 21:00 02/11/25 21:40 02/11/25 22:00 Temperature 98.0 F Pulse Rate 75 Respiratory Rate 16 16 20 Blood Pressure 146/86 H 156/95 H 128/62 Pulse Oximetry 100 100 99 Oxygen Delivery 02/11/25 22:27 02/11/25 23:20 02/11/25 23:21 Temperature Pulse Rate 83 Respiratory Rate Blood Pressure 123/68 98/52 L Pulse Oximetry Oxygen Delivery 02/11/25 23:21 02/12/25 00:00 02/12/25 04:00 Temperature Pulse Rate 81 81 Respiratory Rate Blood Pressure 93/59 L Pulse Oximetry Oxygen Delivery 02/12/25 06:00 02/12/25 07:00 02/12/25 08:08 Temperature 98.0 F 97.7 F Pulse Rate 79 82 91 Respiratory Rate 20 23 H 20 Blood Pressure 139/71 144/72 H 178/89 H Pulse Oximetry 99 99 100 Oxygen Delivery Room Air Room Air Intake/Output Intake/Output: Intake & Output 02/09/25 02/10/25 02/11/25 02/12/25 23:59 23:59 23:59 23:59 Intake Total 1000 1000 Output Total 700 Balance 1000 300 Meds/Results Medications: Active Medications Generic Name Dose Route Start Last Admin Trade Name Freq PRN Reason Stop Dose Admin Epinephrine HCl 1.6 mg 02/12/25 08:04 02/12/25 08:04 Epinephrine Inj 1 Mg/10 Ml Syringe XX 02/12/25 08:05 1.6 mg ONCE ONE Administration Lactated Ringer's 1,000 mls @ 150 mls/hr 02/12/25 06:40 02/12/25 08:06 Lr - Lactated Ringers Iv IV CONT 150 mls/hr .Q6H40M ZOILA Infusion Pantoprazole Sodium 40 mg 02/12/25 09:00 Pantoprazole Sodium Iv 40 Mg Vial IV PUSH Q12HR ZOILA Simethicone 1.8 ml 02/12/25 06:50 02/12/25 07:30 Simethicone Oral Suspension 20 Mg/0.3 Ml 30 Ml Bottle PO 1.8 ml ONCE PRN Administration Gas Discomfort Labs Labs: Laboratory Results - last 24 hr 02/11/25 02/11/25 02/12/25 19:30 23:15 05:36 WBC 10.8 H 7.5 RBC 3.63 L 3.29 L Hgb 11.2 L 11.0 L 10.0 L Hct 34.4 L 34.6 L 31.2 L MCV 94.8 94.8 MCH 30.9 30.4 MCHC 32.6 32.1 RDW 13.5 13.6 Plt Count 208 182 MPV 9.0 8.9 Immature Gran % (Auto) 0.5 Neut % (Auto) 81.3 H Lymph % (Auto) 11.8 L Edwards % (Auto) 4.3 Eos % (Auto) 1.5 Baso % (Auto) 0.6 Lymph # (Auto) 1.27 Edwards # (Auto) 0.5 Eos # (Auto) 0.2 Baso # (Auto) 0.1 Abs Immat Gran (auto) 0.05 H Absolute Neuts (auto) 8.8 H Absolute Nucleated RBC 0.000 Nucleated RBC % 0.0 PT 16.1 H 16.2 H INR 1.3 1.3 APTT 20.5 L 22.3 Sodium 138 136 L Potassium 4.2 4.4 Chloride 112 H 108 H Carbon Dioxide 17 L 21 L Anion Gap 9 7 BUN 36 H 34 H Creatinine 0.83 0.81 Estim Creat Clear Calc 77 81 Estimated GFR > 60 > 60 Glucose 180 H 135 H Lactic Acid 1.8 Calcium 7.9 L 8.5 Magnesium 1.8 Total Bilirubin 0.3 AST 21 ALT 18 Alkaline Phosphatase 27 L Total Protein 5.4 L Albumin 2.9 L Blood Type A Positive Antibody Screen Negative
[2025-02-12 09:01] LABS: Hemoglobin A1C. 6.6 % (<5.7)
[2025-02-12] MEDS: PANTOPRAZOLE SODIUM IV 40 MG VIAL IV PUSH ×2 (09:01→20:52)
--- NOTE | 2025-02-12 10:35 | PC.NURSE ---
pt transferred to room 202 via bed per MD order, report given to Missy COHEN and reviewed condition and plan of care, at bedside
[2025-02-12] MEDS: DEXTROSE 5%/0.9% SOD CHL 1,000 ML 100 ML IV CONT ×2 (11:23→20:52)
[2025-02-12 11:59] LABS: Glucose Point of Care 170 mg/dl (65-105)
[2025-02-12 18:31] LABS: Glucose Point of Care 159 mg/dl (65-105)
[2025-02-12 23:40] LABS: Hematocrit 29.2 % (42.0-52.0); Hemoglobin 9.5 g/dL (14.0-18.0)
[2025-02-13] VITALS (18 sets, daily range): BP systolic 121–149; BP diastolic 64–78; PULSE 73–106; RESP 16–20; TEMP 36.6–37.1; O2SAT 96–98
[2025-02-13 00:07] LABS: Glucose Point of Care 146 mg/dl (65-105)
[2025-02-13 05:17] LABS: Hematocrit 27.5 % (42.0-52.0); Mean Corpuscular HGB Conc 32.7 g/dl (32-36); Mean Corpuscular Hemoglobin 30.8 pg (26-34); Mean Corpuscular Volume 94.2 fl (80-100); Platelet Count Result 181 k/mm3 (150-375); Red Blood Count 2.92 M/mm3 (4.6-6.20); Red Cell Distribution Width 13.7 % (11.5-14.5); White Blood Count 8.2 K/mm3 (4.5-10.0)
[2025-02-13 05:30] LABS: Alanine Aminotransferase 17 U/L (6-50); Albumin Level 3.2 g/dL (3.5-5.1); Alkaline Phosphatase 36 U/L (38-126); Anion Gap 3 mmol/L (4-12); Aspartate Amino Transferase 17 U/L (17-59); Bilirubin,Total 0.5 mg/dL (0.2-1.3); Blood Urea Nitrogen 18 mg/dL (9-20); Calcium 8.1 mg/dL (8.4-10.2); Carbon Dioxide 25 mmol/L (22-30); Chloride 106 mmol/L (98-107); Estimated CRCL calculation 72 ml/min; Estimated Glomerular Filt Rate > 60; Glucose 155 mg/dL (65-110); Potassium 3.7 mmol/L (3.4-5.0); Sodium 134 mmol/L (137-145); Total Protein 5.7 g/dL (6.3-8.2)
[2025-02-13] MEDS: DEXTROSE 5%/0.9% SOD CHL 1,000 ML 100 ML IV CONT (06:20)
--- NOTE | 2025-02-13 07:06 | PM.IMPN ---
Progress Note: A&P Assessment and Plan (1) GI bleed: Code(s): K92.2 - Gastrointestinal hemorrhage, unspecified Status: Acute Assessment and Plan: Daily ibuprofen and Excedrin use for ongoing sciatica pain, likely cause of GI bleed. No alcohol history. Discussed avoiding NSAIDs and Excedrin and trying acetaminophen for pain Remains hemodynamically stable H/H downtrended to 9 but repeat remained stable, continue to monitor. H/H q 6H. Possible that H/H downtrend was slightly dilutional given IV fluids for patient NPO status vs continued bleeding vs a delayed response from prior bleeding If H/H continues to downtrend or becomes hypotensive consider a CTA to reassess Pantoprazole IV BID, will need to be discharged on pantoprazole 40 mg PO BID for 6 weeks Diet: NPO. Started on D5NS. Hypoglycemia protocol. Accu check q6h. DVT Px: SCDs. Avoid anti-coagulations Monitor serum electrolytes, CBC, hemoglobin/hematocrit q.8 hours. If hemoglobin drops below 7 transfuse packed red blood cells Monitor for bloody bowel movements,chest pain,SOB or dizziness/lightheadedness GI consulted EGD showed a few superficial, cratered benign ulcers in the antrum. Single superficial acute benign ulcer that is actively spurting bleeding. Epinephrine injection done for vasoconstriction. Awaiting gastric bx to rule out cocomitant H pylori undergoing approximately 36 hours of NPO status and is scheduled to resume a regular diet with dinner tonight. (2) Hyperglycemia: Code(s): R73.9 - Hyperglycemia, unspecified Status: Acute Assessment and Plan: Glucose 135 on [facility] hypoglycemia protocol POC blood glucose ACHS home medication - metformin 500 mg daily started on SSI Hemoglobin A1c 6.6 Subjective Date/time seen: 02/13/25 07:06 Interval history: 74-year-old male without any significant reported medical history who presented to the hospital via EMS from home for evaluation of blood in stools. Patient is pleasant lying comfortably in his bed. He states that he is having fewer black, tarry stools yesterday and none today. He has no other complaints denying chest pain, shortness of breath, palpitations, nausea/vomiting and abdominal pain. Patient is ambulating throughout room and denies dizziness/lightheadedness or weakness. Review of Systems Review of Systems: All systems reviewed & are unremarkable except as noted in HPI and below Exam Narrative: AF HR 73 RR 16 Spo2 98 BP 129/64 General: male in no acute respiratory distress who is nontoxic appearing, lying semi recumbent in bed. HEENT: Normocephalic. Atraumatic. Extraocular movement intact. No facial asymmetry. Chest: Lungs are clear to auscultation bilaterally. No wheezes or crackles. CV: Heart was regular rate and rhythm. Abd: Abdomen was soft. Nontender. Nondistended. Positive bowel sounds. Ext: No clubbing, cyanosis, or edema. DP pulses bilaterally. Neuro: Patient is alert and oriented x4. Speech is clear. Objective Data Vital Signs Vital Signs: Vital Signs - 24 hr 02/12/25 08:08 02/12/25 08:18 02/12/25 08:28 Temperature Pulse Rate 91 98 87 Respiratory Rate 20 19 18 Blood Pressure 178/89 H 173/98 H 161/89 H Pulse Oximetry 100 100 100 Oxygen Delivery Room Air Room Air Room Air 02/12/25 08:50 02/12/25 12:00 02/12/25 12:00 Temperature 97.9 F Pulse Rate 94 Respiratory Rate 24 H Blood Pressure 144/73 H Pulse Oximetry 97 Oxygen Delivery Room Air Room Air 02/12/25 12:00 02/12/25 14:00 02/12/25 16:00 Temperature 98.2 F Pulse Rate 91 90 96 Respiratory Rate 24 H Blood Pressure 137/70 Pulse Oximetry 97 Oxygen Delivery 02/12/25 16:00 02/12/25 16:00 02/12/25 18:00 Temperature Pulse Rate 94 96 Respiratory Rate Blood Pressure Pulse Oximetry Oxygen Delivery Room Air 02/12/25 19:52 02/12/25 20:00 02/12/25 20:00 Temperature 98.7 F 98.7 F 98.7 F Pulse Rate 92 92 119 H Respiratory Rate 20 20 24 H Blood Pressure 146/74 H 146/74 H 114/53 L Pulse Oximetry 97 97 94 Oxygen Delivery 02/12/25 20:00 02/12/25 20:00 02/12/25 20:45 Temperature 98.7 F Pulse Rate 95 95 104 H Respiratory Rate 20 20 Blood Pressure 108/59 L Pulse Oximetry 99 99 Oxygen Delivery Room Air 02/12/25 21:16 02/13/25 00:00 02/13/25 00:00 Temperature 98.8 F Pulse Rate 98 93 96 Respiratory Rate 18 18 Blood Pressure 132/65 Pulse Oximetry 98 98 Oxygen Delivery Room Air 02/13/25 00:00 02/13/25 02:00 02/13/25 04:00 Temperature Pulse Rate 96 88 79 Respiratory Rate 18 Blood Pressure Pulse Oximetry 98 Oxygen Delivery Room Air 02/13/25 04:00 02/13/25 04:00 02/13/25 05:43 Temperature 98.2 F Pulse Rate 79 88 74 Respiratory Rate 18 Blood Pressure 129/75 Pulse Oximetry 98 Oxygen Delivery Intake/Output Intake/Output: Intake & Output 02/10/25 02/11/25 02/12/25 02/13/25 23:59 23:59 23:59 23:59 Intake Total 1000 2948.3 946.7 Output Total 2450 1125 Balance 1000 498.3 -178.3 Meds/Results Medications: Active Medications Generic Name Dose Route Start Last Admin Trade Name Freq PRN Reason Stop Dose Admin Dextrose 12.5 gm 02/12/25 11:06 Dextrose 50% 25 Gm/50 Ml Syringe IV PUSH PRN PRN Hypoglycemia Protocol Glucagon 1 mg 02/12/25 11:06 Glucagon For Inj 1 Mg Vial IM PRN PRN Hypoglycemia Protocol Glucose 15 gm 02/12/25 11:06 Glucose Oral Gel 15 Gm Of Glucse In 37.5 Gm Tube PO PRN PRN Hypoglycemia Protocol Dextrose/Sodium Chloride 1,000 mls @ 100 mls/hr 02/12/25 11:10 02/13/25 06:20 Dextrose 5% Sodium Chloride 0.9% IV CONT 100 mls/hr .Q10H ZOILA Administration Dextrose 1,000 mls @ 100 mls/hr 02/12/25 11:06 Dextrose 5% 1,000 Ml IVPB PRN PRN Hypoglycemia Protocol Insulin Aspart 2 - 5 units 02/12/25 18:00 02/13/25 05:43 Insulin Aspart (*Bkc) 100 Units/Ml SUB-Q Not Given Q6HR ZOILA Protocol Pantoprazole Sodium 40 mg 02/12/25 09:00 02/12/25 20:52 Pantoprazole Sodium Iv 40 Mg Vial IV PUSH 40 mg Q12HR ZOILA Administration Simethicone 1.8 ml 02/12/25 06:50 02/12/25 07:30 Simethicone Oral Suspension 20 Mg/0.3 Ml 30 Ml Bottle PO 1.8 ml ONCE PRN Administration Gas Discomfort Labs Labs: Laboratory Results - last 24 hr 02/12/25 02/12/25 02/12/25 05:36 11:42 18:29 WBC RBC Hgb Hct MCV MCH MCHC RDW Plt Count MPV PT 16.2 H INR 1.3 APTT 22.3 Sodium Potassium Chloride Carbon Dioxide Anion Gap BUN Creatinine Estim Creat Clear Calc Estimated GFR Glucose POC Capillary Glucose 170 H 159 H Hemoglobin A1c 6.6 H Calcium Total Bilirubin AST ALT Alkaline Phosphatase Total Protein Albumin 02/12/25 02/12/25 02/13/25 23:12 23:59 04:10 WBC 8.2 RBC 2.92 L Hgb 9.5 L 9.0 L Hct 29.2 L 27.5 L MCV 94.2 MCH 30.8 MCHC 32.7 RDW 13.7 Plt Count 181 MPV 9.0 PT INR APTT Sodium 134 L Potassium 3.7 Chloride 106 Carbon Dioxide 25 Anion Gap 3 L BUN 18 D Creatinine 0.91 Estim Creat Clear Calc 72 Estimated GFR > 60 Glucose 155 H POC Capillary Glucose 146 H Hemoglobin A1c Calcium 8.1 L Total Bilirubin 0.5 AST 17 ALT 17 Alkaline Phosphatase 36 L Total Protein 5.7 L Albumin 3.2 L Quality VTE Prophylaxis VTE prophylaxis: mechanical ordered
[2025-02-13] MEDS: PANTOPRAZOLE SODIUM IV 40 MG VIAL IV PUSH (08:37)
--- NOTE | 2025-02-13 10:05 | WPDGIPROGNO ---
Progress Note: A&P Assessment and Plan (1) Duodenal ulcer hemorrhage: Code(s): K26.4 - Chronic or unspecified duodenal ulcer with hemorrhage Status: Acute Assessment and Plan: Our patient, who presented with an actively bleeding duodenal ulcer, achieved successful hemostasis yesterday morning. Per current guidelines, he's undergoing approximately 36 hours of NPO status and is scheduled to resume a regular diet with dinner tonight. IV pantoprazole will be continued throughout the day. Assuming stable clinical parameters tomorrow, he will be discharged on oral pantoprazole 40mg twice daily, awaiting results from gastric biopsies to rule out concomitant H. pylori infection. The etiology of this bleeding was clearly associated to ibuprofen and Excedrin. He should continue oral pantoprazole for an additional 6 weeks, and we will arrange a follow-up visit in our clinic around that time. We'll reassess his status tomorrow. Subjective Date/time seen: 02/13/25 10:05 Interval history: The patient had a few black melanotic stools yesterday, none during the night or this morning. he feels well, no abdominal pain. Vital signs stable. Hemoglobin has remained stable. Exam Narrative: Abdomen: Soft, nontender, nondistended, no abnormalities. Rest of exam unchanged. Objective Data Vital Signs Vital Signs: Vital Signs - 24 hr 02/12/25 12:00 02/12/25 12:00 02/12/25 12:00 Temperature 97.9 F Pulse Rate 94 91 Respiratory Rate 24 H Blood Pressure 144/73 H Pulse Oximetry 97 Oxygen Delivery Room Air 02/12/25 14:00 02/12/25 16:00 02/12/25 16:00 Temperature 98.2 F Pulse Rate 90 96 94 Respiratory Rate 24 H Blood Pressure 137/70 Pulse Oximetry 97 Oxygen Delivery 02/12/25 16:00 02/12/25 18:00 02/12/25 19:52 Temperature 98.7 F Pulse Rate 96 92 Respiratory Rate 20 Blood Pressure 146/74 H Pulse Oximetry 97 Oxygen Delivery Room Air 02/12/25 20:00 02/12/25 20:00 02/12/25 20:00 Temperature 98.7 F 98.7 F Pulse Rate 92 119 H 95 Respiratory Rate 20 24 H 20 Blood Pressure 146/74 H 114/53 L Pulse Oximetry 97 94 99 Oxygen Delivery Room Air 02/12/25 20:00 02/12/25 20:45 02/12/25 21:16 Temperature 98.7 F Pulse Rate 95 104 H 98 Respiratory Rate 20 Blood Pressure 108/59 L Pulse Oximetry 99 Oxygen Delivery 02/13/25 00:00 02/13/25 00:00 02/13/25 00:00 Temperature 98.8 F Pulse Rate 93 96 96 Respiratory Rate 18 18 Blood Pressure 132/65 Pulse Oximetry 98 98 Oxygen Delivery Room Air 02/13/25 02:00 02/13/25 04:00 02/13/25 04:00 Temperature Pulse Rate 88 79 79 Respiratory Rate 18 Blood Pressure Pulse Oximetry 98 Oxygen Delivery Room Air 02/13/25 04:00 02/13/25 05:43 02/13/25 08:00 Temperature 98.2 F 98.1 F Pulse Rate 88 74 76 Respiratory Rate 18 16 Blood Pressure 129/75 143/78 H Pulse Oximetry 98 97 Oxygen Delivery 02/13/25 08:00 Temperature Pulse Rate Respiratory Rate Blood Pressure Pulse Oximetry 97 Oxygen Delivery Room Air Intake/Output Intake/Output: Intake & Output 02/10/25 02/11/25 02/12/25 02/13/25 23:59 23:59 23:59 23:59 Intake Total 1000 2948.3 946.7 Output Total 2450 1700 Balance 1000 498.3 -753.3 Meds/Results Medications: Active Medications Generic Name Dose Route Start Last Admin Trade Name Freq PRN Reason Stop Dose Admin Dextrose 12.5 gm 02/12/25 11:06 Dextrose 50% 25 Gm/50 Ml Syringe IV PUSH PRN PRN Hypoglycemia Protocol Glucagon 1 mg 02/12/25 11:06 Glucagon For Inj 1 Mg Vial IM PRN PRN Hypoglycemia Protocol Glucose 15 gm 02/12/25 11:06 Glucose Oral Gel 15 Gm Of Glucse In 37.5 Gm Tube PO PRN PRN Hypoglycemia Protocol Dextrose/Sodium Chloride 1,000 mls @ 100 mls/hr 02/12/25 11:10 02/13/25 06:20 Dextrose 5% Sodium Chloride 0.9% IV CONT 100 mls/hr .Q10H OZILA Administration Dextrose 1,000 mls @ 100 mls/hr 02/12/25 11:06 Dextrose 5% 1,000 Ml IVPB PRN PRN Hypoglycemia Protocol Insulin Aspart 2 - 5 units 02/12/25 18:00 02/13/25 05:43 Insulin Aspart (*Bkc) 100 Units/Ml SUB-Q Not Given Q6HR ZOILA Protocol Pantoprazole Sodium 40 mg 02/12/25 09:00 02/13/25 08:37 Pantoprazole Sodium Iv 40 Mg Vial IV PUSH 40 mg Q12HR ZOILA Administration Simethicone 1.8 ml 02/12/25 06:50 02/12/25 07:30 Simethicone Oral Suspension 20 Mg/0.3 Ml 30 Ml Bottle PO 1.8 ml ONCE PRN Administration Gas Discomfort Labs Labs: Laboratory Results - last 24 hr 02/12/25 02/12/25 02/12/25 11:42 18:29 23:12 WBC RBC Hgb 9.5 L Hct 29.2 L MCV MCH MCHC RDW Plt Count MPV Sodium Potassium Chloride Carbon Dioxide Anion Gap BUN Creatinine Estim Creat Clear Calc Estimated GFR Glucose POC Capillary Glucose 170 H 159 H Calcium Total Bilirubin AST ALT Alkaline Phosphatase Total Protein Albumin 02/12/25 02/13/25 23:59 04:10 WBC 8.2 RBC 2.92 L Hgb 9.0 L Hct 27.5 L MCV 94.2 MCH 30.8 MCHC 32.7 RDW 13.7 Plt Count 181 MPV 9.0 Sodium 134 L Potassium 3.7 Chloride 106 Carbon Dioxide 25 Anion Gap 3 L BUN 18 D Creatinine 0.91 Estim Creat Clear Calc 72 Estimated GFR > 60 Glucose 155 H POC Capillary Glucose 146 H Calcium 8.1 L Total Bilirubin 0.5 AST 17 ALT 17 Alkaline Phosphatase 36 L Total Protein 5.7 L Albumin 3.2 L
[2025-02-13 10:27] LABS: Hematocrit 28.7 % (42.0-52.0); Hemoglobin 9.2 g/dL (14.0-18.0)
[2025-02-13 11:56] LABS: Glucose Point of Care 140 mg/dl (65-105)
[2025-02-13 16:31] LABS: Glucose Point of Care 205 mg/dl (65-105)
--- NOTE | 2025-02-13 17:39 | PC.NURSE ---
Phoned and spoke with Dr. Longo and informed that patient is NPO 36 hours Post-op EGD 02/12/25, patient is now eating dinner and tolerating well. request to D/c IV fluids D5NS now that patient is eating and D/c IV access as access in not working and will need new site placed, patient to go home 02/14/25 pending H/H. Order given from Dr. Longo to stop IV fluids D5NS and OK for patient to not have IV access. Fluids stopped per order and IV access pulled. Priya Stoner RN
[2025-02-13 18:28] LABS: Hematocrit 29.6 % (42.0-52.0); Hemoglobin 9.5 g/dL (14.0-18.0)
[2025-02-13] MEDS: PANTOPRAZOLE 40 MG TABLET PO (20:24)
[2025-02-13 20:44] LABS: Glucose Point of Care 165 mg/dl (65-105)
[2025-02-14] VITALS: PULSE 81
[2025-02-14 00:21] LABS: Hematocrit 27.8 % (42.0-52.0)
[2025-02-14 02:00] VITALS: PULSE 77
[2025-02-14 04:00] VITALS: BP 144/74; PULSE 76; PULSE 81; RESP 18; TEMP 36.6; O2SAT 98; O2SAT 99
[2025-02-14 05:58] VITALS: PULSE 112
[2025-02-14 06:28] LABS: Hematocrit 31.7 % (42.0-52.0); Hemoglobin 10.1 g/dL (14.0-18.0)
[2025-02-14 07:07] LABS: Alanine Aminotransferase 34 U/L (6-50); Albumin Level 3.9 g/dL (3.5-5.1); Alkaline Phosphatase 47 U/L (38-126); Anion Gap 10 mmol/L (4-12); Aspartate Amino Transferase 30 U/L (17-59); Bilirubin,Total 0.6 mg/dL (0.2-1.3); Blood Urea Nitrogen 14 mg/dL (9-20); Calcium 8.9 mg/dL (8.4-10.2); Carbon Dioxide 22 mmol/L (22-30); Chloride 106 mmol/L (98-107); Estimated CRCL calculation 71 ml/min; Estimated Glomerular Filt Rate > 60; Glucose 146 mg/dL (65-110); Potassium 4.1 mmol/L (3.4-5.0); Sodium 138 mmol/L (137-145); Total Protein 6.5 g/dL (6.3-8.2)
--- NOTE | 2025-02-14 07:28 | WPDGIPROGNO ---
Progress Note: A&P Assessment and Plan (1) Duodenal ulcer hemorrhage: Code(s): K26.4 - Chronic or unspecified duodenal ulcer with hemorrhage Status: Acute Assessment and Plan: Hemoglobin today 10.1. Patient did not have a stool output. . He feels well overall. He will be discharged on pantoprazole 40 mg b.i.d.. Follow up in my office in 4 weeks. Instructed not to take Excedrin or NSAIDs. Subjective Date/time seen: 02/14/25 07:28 Objective Data Vital Signs Vital Signs: Vital Signs - 24 hr 02/13/25 08:00 02/13/25 08:00 02/13/25 08:00 Temperature 98.1 F Pulse Rate 76 84 Respiratory Rate 16 Blood Pressure 143/78 H Pulse Oximetry 97 97 Oxygen Delivery Room Air Fraction of Inspired Oxygen 02/13/25 08:00 02/13/25 10:00 02/13/25 11:57 Temperature 97.8 F 97.8 F Pulse Rate 76 90 76 Respiratory Rate 16 16 Blood Pressure 142/71 H 142/71 H Pulse Oximetry 98 98 Oxygen Delivery Fraction of Inspired Oxygen 02/13/25 11:58 02/13/25 11:59 02/13/25 12:00 Temperature Pulse Rate Respiratory Rate Blood Pressure 121/75 129/64 Pulse Oximetry 98 Oxygen Delivery Room Air Fraction of Inspired Oxygen 02/13/25 12:00 02/13/25 14:00 02/13/25 16:00 Temperature 97.9 F Pulse Rate 73 84 80 Respiratory Rate 20 Blood Pressure 147/75 H Pulse Oximetry 97 Oxygen Delivery Fraction of Inspired Oxygen 02/13/25 16:00 02/13/25 16:00 02/13/25 18:00 Temperature Pulse Rate 106 H 90 Respiratory Rate Blood Pressure Pulse Oximetry 97 Oxygen Delivery Room Air Fraction of Inspired Oxygen 02/13/25 20:00 02/13/25 20:00 02/13/25 20:00 Temperature 98.2 F Pulse Rate 93 92 Respiratory Rate 18 Blood Pressure 149/70 H Pulse Oximetry 98 98 Oxygen Delivery Room Air Fraction of Inspired Oxygen 02/13/25 21:00 02/13/25 22:00 02/13/25 23:20 Temperature Pulse Rate 89 Respiratory Rate Blood Pressure Pulse Oximetry 98 98 Oxygen Delivery Room Air Room Air Fraction of Inspired Oxygen 02/13/25 23:54 02/14/25 00:00 02/14/25 02:00 Temperature 98.4 F Pulse Rate 85 81 77 Respiratory Rate 18 Blood Pressure 133/66 Pulse Oximetry 96 Oxygen Delivery Fraction of Inspired Oxygen 02/14/25 04:00 02/14/25 04:00 02/14/25 04:00 Temperature 97.9 F Pulse Rate 76 81 Respiratory Rate 18 Blood Pressure 144/74 H Pulse Oximetry 98 99 Oxygen Delivery Room Air Fraction of Inspired Oxygen 02/14/25 05:58 Temperature Pulse Rate 112 H Respiratory Rate Blood Pressure Pulse Oximetry Oxygen Delivery Fraction of Inspired Oxygen Intake/Output Intake/Output: Intake & Output 02/11/25 02/12/25 02/13/25 02/14/25 23:59 23:59 23:59 23:59 Intake Total 1000 2948.3 946.7 250 Output Total 2450 2800 500 Balance 1000 498.3 -1853.3 -250 Meds/Results Medications: Active Medications Generic Name Dose Route Start Last Admin Trade Name Freq PRN Reason Stop Dose Admin Dextrose 12.5 gm 02/12/25 11:06 Dextrose 50% 25 Gm/50 Ml Syringe IV PUSH PRN PRN Hypoglycemia Protocol Glucagon 1 mg 02/12/25 11:06 Glucagon For Inj 1 Mg Vial IM PRN PRN Hypoglycemia Protocol Glucose 15 gm 02/12/25 11:06 Glucose Oral Gel 15 Gm Of Glucse In 37.5 Gm Tube PO PRN PRN Hypoglycemia Protocol Dextrose 1,000 mls @ 100 mls/hr 02/12/25 11:06 Dextrose 5% 1,000 Ml IVPB PRN PRN Hypoglycemia Protocol Insulin Aspart 2 - 5 units 02/14/25 08:00 Insulin Aspart (*Bkc) 100 Units/Ml SUB-Q TIDWM ZOILA Protocol Pantoprazole Sodium 40 mg 02/13/25 21:00 02/13/25 20:24 Pantoprazole 40 Mg Tablet PO 40 mg Q12HR ZOILA Administration Simethicone 1.8 ml 02/12/25 06:50 02/12/25 07:30 Simethicone Oral Suspension 20 Mg/0.3 Ml 30 Ml Bottle PO 1.8 ml ONCE PRN Administration Gas Discomfort Labs Labs: Laboratory Results - last 24 hr 02/13/25 02/13/25 02/13/25 10:16 11:04 15:29 Hgb 9.2 L Hct 28.7 L Sodium Potassium Chloride Carbon Dioxide Anion Gap BUN Creatinine Estim Creat Clear Calc Estimated GFR Glucose POC Capillary Glucose 140 H 205 H Calcium Total Bilirubin AST ALT Alkaline Phosphatase Total Protein Albumin 02/13/25 02/13/25 02/14/25 18:19 20:15 00:17 Hgb 9.5 L 9.0 L Hct 29.6 L 27.8 L Sodium Potassium Chloride Carbon Dioxide Anion Gap BUN Creatinine Estim Creat Clear Calc Estimated GFR Glucose POC Capillary Glucose 165 H Calcium Total Bilirubin AST ALT Alkaline Phosphatase Total Protein Albumin 02/14/25 06:05 Hgb 10.1 L Hct 31.7 L Sodium 138 Potassium 4.1 Chloride 106 Carbon Dioxide 22 Anion Gap 10 BUN 14 Creatinine 0.93 Estim Creat Clear Calc 71 Estimated GFR > 60 Glucose 146 H POC Capillary Glucose Calcium 8.9 Total Bilirubin 0.6 AST 30 ALT 34 Alkaline Phosphatase 47 Total Protein 6.5 Albumin 3.9
[2025-02-14 07:41] VITALS: PULSE 97
--- NOTE | 2025-02-14 07:47 | P.DS_ITS ---
DS: Admitting Diagnosis Discharge Date Admitting Diagnosis GI bleed Hyperglycemia DS: Discharge Diagnosis Discharge Diagnosis (1) GI bleed: Code(s): K92.2 - Gastrointestinal hemorrhage, unspecified Status: Acute (2) Hyperglycemia: Code(s): R73.9 - Hyperglycemia, unspecified Status: Acute DS: Summary Hospital Course Reason for hospitalization: GI bleed Hyperglycemia Hospital Course: 74-year-old male without any significant reported medical history who presented to the hospital via EMS from home for evaluation of blood in stools. Patient stated that he daily ibuprofen and Excedrin use for ongoing sciatica pain, likely cause of GI bleed. No alcohol history. Started on IV protonix. GI consulted and EGD performed which showed a few superficial, cratered benign ulcers in the antrum. Single superficial acute benign ulcer that is actively spurting bleeding. Epinephrine injection done for vasoconstriction. Awaiting gastric bx to rule out concomitant H pylori. Patient transferred to IMU for closer monitoring. Remained hemodynamically stable. Denied recurrence of black tarry stools. H/H remained stable. Patient okay to discharge from GI standpoint on 40 mg BID Protonix with follow up in the office in 4 weeks. Again reiterated that patient should avoid Excedrin and NSAID use. He stated understanding. Patient has no complaints at time of discharge denying any dark/tarry stools, pain, shortness of breath, palpitations, nausea/vomiting, abdominal pain, and dizziness/lightheadedness with ambulation. Patient discharged home in a stable condition. He is to follow up with his PCP in 1 week and GI as scheduled. Status at Discharge Functional status at discharge: independent ambulation Time Spent with Patient Time attestation: Total time spent providing and/or coordinating discharge services: Time spent: Greater than 30 minutes Exam Narrative: AF HR 81 RR 18 Spo2 99 BP 144/74 General: male in no acute respiratory distress who is nontoxic appearing, sitting on the side of bed HEENT: Normocephalic. Atraumatic. Extraocular movement intact. No facial asymmetry. Chest: Lungs are clear to auscultation bilaterally. No wheezes or crackles. CV: Heart was regular rate and rhythm. Abd: Abdomen was soft. Nontender. Nondistended. Positive bowel sounds. Ext: No clubbing, cyanosis, or edema. DP pulses bilaterally. Neuro: Patient is alert and oriented x4. Speech is clear. DS: Data Data Completed and Pending Pending studies at discharge: Pending at discharge 02/12/25 08:01 Surgical [PTH] Routine Labs on day of discharge: Labs from last 24 hours 02/14/25 02/14/25 02/13/25 06:05 00:17 20:15 Hgb 10.1 L 9.0 L Hct 31.7 L 27.8 L Sodium 138 Potassium 4.1 Chloride 106 Carbon Dioxide 22 Anion Gap 10 BUN 14 Creatinine 0.93 Estim Creat Clear Calc 71 Estimated GFR > 60 Glucose 146 H POC Capillary Glucose 165 H Calcium 8.9 Total Bilirubin 0.6 AST 30 ALT 34 Alkaline Phosphatase 47 Total Protein 6.5 Albumin 3.9 02/13/25 02/13/25 02/13/25 18:19 15:29 11:04 Hgb 9.5 L Hct 29.6 L Sodium Potassium Chloride Carbon Dioxide Anion Gap BUN Creatinine Estim Creat Clear Calc Estimated GFR Glucose POC Capillary Glucose 205 H 140 H Calcium Total Bilirubin AST ALT Alkaline Phosphatase Total Protein Albumin 02/13/25 10:16 Hgb 9.2 L Hct 28.7 L Sodium Potassium Chloride Carbon Dioxide Anion Gap BUN Creatinine Estim Creat Clear Calc Estimated GFR Glucose POC Capillary Glucose Calcium Total Bilirubin AST ALT Alkaline Phosphatase Total Protein Albumin Discharge Plan Discharge Attending physician on discharge: Fozia Longo Consulting providers: Bhakti Mcleod Discharging Clinician: Bhakti Mcleod Anticipated Discharge Date/Time: 02/14/25 07:39 Patient Disposition: Home Activity: as tolerated Diet: as tolerated and diabetic Discharge Instructions: Discharge disposition: Patient admitted to the hospital for a bleeding duodenal ulcer GI evaluated patient and EGD was performed Avoid NSAIDs and Excedrin as this likely precipitated the GI bleed. Try acetaminophen for pain. Take medications as prescribed Started on pantoprazole 40 mg twice a day, attached is information on this medication Obtain a repeat blood draw in 5 days to reassess blood levels Eat well balanced meals and do not over hydrate Keep active Keep an eye on your stool, should your stool be black or dark purple, you should come back to the hospital Follow-up with GI in the outpatient setting Take caution while standing, rising, or moving Change positions slowly taking a break between each position change If you standing feel dizzy sit back down and take a break Encouraged to continue with yearly vaccinations Return to the emergency department if he developed sudden shortness of breath, chest pain, nausea, vomiting, upset stomach or intractable diarrhea Return to the emergency department if you develop fever greater than 101.5 Follow-up with the primary care physician within 1-2 weeks Thank you for choosing [facility] for your healthcare needs Patient Instructions: Pantoprazole (By mouth), Gastrointestinal Bleeding (DC) Patient Language: [place] Stand Alone Forms: General Discharge Information Follow-up/Referrals: Esmer,Meño Quiles M.D. [Primary Care Provider] - 1 Week Jerome Burgos MD [Physician] - 4 Weeks Discharge Medications: New pantoprazole 40 mg Tablet,Delayed Release (Dr/Ec) 40 mg PO Q12HR 28 Days Qty: 56 0RF Continued metformin 500 mg tablet 500 mg PO DAILY Held sildenafil (pulm.hypertension) 20 mg tablet 20 mg PO .COMPLEX PRN (Reason: sexual activity) Qty: 30 1RF Hold Instructions: Resume on 03/18/25. Hold until follow up with PCP. Rx Instructions: Take 3-5 tabs in 24 hrs. No more than 5 tabs in 24 hours. Other Ambulatory Orders: Hemoglobin and Hematocrit (Routine) Timeframe: 5 Days Location: Determined by Patient Ordered By: Bhakti Mcleod Date of admission: 02/12/25 08:12 Primary Care Provider: AdithyaMeño Admitting Provider: Fozia Longo Attending physician on admission: Fozia Longo Condition: Stable Hospitalist MIPS Heart Failure (Exclusion) Patient has history of Heart Transplant or Left Ventricular Assistive Device?: No IF YES, STOP HERE Heart Failure (Qualifier) Patient has current or prior documentation of LVEF less than or equal to 40%, or mod/servere depressed LVSF?: No IF NO, STOP HERE
[2025-02-14 08:00] VITALS: BP 127/64; PULSE 92; PULSE 97; RESP 16; TEMP 36.8; O2SAT 100
[2025-02-14] MEDS: PANTOPRAZOLE 40 MG TABLET PO (08:20)
[2025-02-14 09:04] LABS: Glucose Point of Care 159 mg/dl (65-105)
== END 2025-02-14 08:46 | disposition home or self-care (01) | DRG 379 ==
LOC: ANHED 20:44 → ANH2MED 21:34 → ANHIMU 02-12 15:51 → ANH2MED 02-16 11:44
PROVIDERS: Internal Medicine Gastroenterology; Nurse Practitioner; Physician Assistant; Admitting Provider Internal Medicine; Emergency Provider Emergency Medicine; PCP Family Medicine; Visit Provider Student in an Organized Health Care Education/Training Program
PROC: 0DJ08ZZ Inspection of Upper Intestinal Tract, Via Natural or Artificial Opening Endoscopic (ICD-10-PCS; principal; 2025-02-12 07:30)
DX: K26.0 Acute duodenal ulcer with hemorrhage (principal); K25.9 Gastric ulcer, unspecified as acute or chronic, without hemorrhage or perforation; I10 Essential (primary) hypertension; R73.09 Other abnormal glucose; M54.32 Sciatica, left side
CPT/HCPCS: 36415; 80048; 80053; 82948; 83036; 83605; 83735; 85014; 85018; 85025; 85027; 85610; 85730; 86850; 86900; 86901; 88305; 96361; 96374; 96375; 99285; A9270; G0378; J0171; J2003; J2470; J2704; J7042; J7120